=== PATIENT | male | born 1935 | race Caucasian/White ===

== ENCOUNTER 2019-02-26 08:32 | Day surgery (SDC) | payer OTHER, MEDICARE ==
[~2019-02-26] VITALS: Ht 170.2 cm; Wt 93.0 kg
--- NOTE | ~2019-02-26 | O ---
[facility] Dav Schmidt [facility] [address] OPERATIVE REPORT Name: DEBBIE SANDHU Damaso Room #: DEP [facility]..#: [id number] Admission: 02/26/19 Attend Phys: Nav Fernandes MD Discharge: 02/26/19 Date of : 37 Report #: [id number] THIS REPORT FOR: //name// CC: Dr. 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 PROCEDURE: Excision of squamous cell carcinoma of left lower lid, cheek and orbit with frozen sections, musculocutaneous flap repair of defect based on the temporalis muscle, vascularized tarsoconjunctival flap from the left upper lid to the left lower lid, full thickness skin graft from the right upper lid to the left lower lid. SURGEON: Nav Fernandes MD SENIOR JAVA SOFTWARE ENGINEER: None. ANESTHESIA: General. COMPLICATIONS: None. INDICATIONS FOR SURGERY: This pleasant 83-year-old gentleman has a biopsy proven relatively atypical squamous proliferation in his left lower lid, situated in the posterior lamella that has been shown to be squamous cell carcinoma. It is nodular and inflammatory in appearance and appears more consistent with sebaceous cell carcinoma, but the pathology shows it is indeed a squamous cell carcinoma. He presents today for excision of this tumor with frozen sections to completely extirpate the tumor if possible, and subsequently repair that defect. Informed consent was obtained to include but not limited to the potential risk for loss of vision, bleeding, infection, failure to improve the problem, and the almost certain need for additional treatment such as external beam radiation in order to limit his risk for loss of his eye. DESCRIPTION OF PROCEDURE: The patient was taken to the operating room where general anesthesia was administered. The left lower lid, the left lateral canthus, the left cheek, the left infratemporal fossa and the left medial [address] [address] OPERATIVE REPORT Name: DEBBIE SANDHU Room #: DEP [facility]..#: [id number] Admission: 02/26/19 Attend Phys: Nav Fernandes MD Discharge: 02/26/19 Date of : 37 Report #: [id number] canthus were anesthetized with Xylocaine with epinephrine mixed with Marcaine and Wydase. The patient was subsequently prepped and draped in the usual sterile fashion under general anesthesia. A fine tip skin marking pen was then utilized to outline the lesion as it presented across the cutaneous surface of the lower lid. The lesion was much, much deeper in the orbit than what was present to be seen externally. The pathologist was actually in the room and inspected the site with me as we determined our initial incisions. A Winnie scissor was then used to incise across the lid margin down into the pre-malar space taking an en bloc section. An incision across the lateral canthus that included all of the lateral canthus was taken and then the 2 points were connected in the cheek. Hemostasis was achieved with pinpoint monopolar cautery as the pathologist awaited the specimen. The dissection was then carried out in the orbit the lesion from the adjacent inferior oblique and inferior rectus muscle complex medially, and the lateral rectus and deeper orbital structures laterally and centrally. The final excision was accomplished with a Winnie scissor, but no abhilash margin was expected to be able to anticipate in this tissue because it was in fat. The specimen was then passed off to the pathologist as hemostasis was subsequently achieved with that portion of the dissection. The pathologist snap froze that tissue and she felt that the margin was closed medially and definitely positive laterally. She could not say much about it inferiorly because of the fat. An additional medial section was taken, which left just a stump of the lower eyelid. It was oriented on a drawing with the new margin up and inked. An incision was then made across the lateral portion of the lateral canthus down to the periosteum and then directed inferiorly across the periosteum into the cheek. It was then directed more nasally, thus ensuring that the entire lateral portion of the wound was excised. This was then oriented on a drawing for the waiting pathologist. The pathologist snap froze that tissue and felt that our margins were at that point adequate. A musculocutaneous flap was then developed laterally based on the temporalis muscle. The relaxing incisions made to split the muscle anteroposteriorly and allowed to be rotated in a medial-leyva fashion. Hemostasis was achieved with diligent pinpoint monopolar cautery. This tissue was rotated in such a manner so as to take superficial temporal artery with it. A deep Vicryl pass was made to periosteum in the orbit to affix the rotated tissue into the periosteum to establish the canthopexy. The skin was closed with buried 5-0 and 6-0 Vicryl sutures deep and then 6-0 plain gut sutures more superficially. The left upper lid was then everted and an incision made with a 15C blade 3.5 mm superior to the inferior border of the tarsal plate. The tarsotomy was then completed as a vascularized tarsoconjunctival flap from the left upper lid was [facility] [address] [place] [address] OPERATIVE REPORT Name: DEBBIE SANDHU [id number] Admission: 02/26/19 Attend Phys: Nav Fernandes MD Discharge: 02/26/19 Date of : 37 Report #: [id number] established. The maximum amount of tarsal plate was taken from the upper lid to allow the entire lower lid defect to be corrected. The flap was left as thin as possible to reduce the patient's risk of subsequent lid retraction. That vascularized tarsoconjunctival flap was then secured with the tarsus being attached to inferior orbital fat since the conjunctiva was completely absent in this area from the prior dissection. During that reconstruction, care was taken to ensure that the lesion was not sewn onto the globe per se and with the bare globe exposed across the entire inferior portion of the eye, it would have been easy to accomplish. The tarsal plate was secured to the musculocutaneous flap laterally and then a stub of the tarsal plate medially. This still left a defect of considerable size in the central left lower lid. A fine tip skin marking pen was then utilized to outline an upper lid crease incision on the right side. The incision was then made with a Winnie scissor. The redundant tissue in the upper lid that could be excised and still allow the patient to comfortably close his eyes was outlined. A subsequent incision was then made with a Winnie scissor and a skin muscle flap removed with high-temp cautery. That wound was then dried with monopolar cautery and closed with interrupted buried 6-0 chromic sutures to recreate the upper lid crease and then 6-0 plain gut sutures to close the skin. That full thickness skin graft was then defatted. It was subsequently secured to its bed in the left lower lid with interrupted 7-0 Vicryl sutures and 6-0 plain gut sutures. The wound was then cleaned and dressed with erythromycin ophthalmic ointment bilaterally. On the left side, a Telfa pad was placed in multiple layers, followed by 2 eye pads, which were held in place with silk tape and Mastisol. The patient was subsequently transported to the recovery area having tolerated the procedures well with no anesthetic or operative complications being noted. By: [id number] Nav Fernandes MD /nt
[~2019-02-26 08:32] MED LIST: ASPIRIN EC325 MG PO; FINASTERIDE5 MG PO; K-DUR10 MEQ PO; LIPITOR10 MG PO; LISINOPRIL-HCT1 EAC1 PO; NORVASC5 MG PO; SYNTHROID100 MC1 PO; ZYRTEC10 M5 PO
[2019-02-26 10:10] VITALS: BP 148/68
--- NOTE | 2019-02-27 15:07 | PATH ---
[facility] Dav Schmidt [place] [address] PATHOLOGY RPT PROCEDURE Name: DEBBIE SCHAEFER Damaso Room #: [facility].#: [id number] Admission: 02/26/19 Date of : 37 Discharge: 02/26/19 Report #: [id number] Path Case #: [id number] [facility] Accession Number: [id number] . 01 Material submitted: . PART A: lid - LEFT LOWER LID SQUAMOUS CELL CARCINOMA. Modifiers: left, lower PART B: lid - LEFT LOWER LID MARGINS. Modifiers: left, lower . 02 Frozen section diagnosis: . INTRAOPERATIVE CONSULTATION WITH FROZEN SECTION: (Dr. Marybeth Rowland) . FSA1, FSA2. Skin, left lower lid squamous cell carcinoma, excision: - Lateral margin positive, medial less than 1 mm away, inferior margin free. . FSB1. Skin, left lower lid (medial and lateral) margins: - Skin at true margins free of invasive carcinoma. - Suspicious at conjunctival margin due to dense inflammatory infiltrate. . . These findings are discussed with Dr. Nav Fernandes in OR 6 and a written report is placed in the patient's chart. (IUV:mml; 02/26/2019) . . . FROZEN SECTION GROSS DESCRIPTION: A. Received fresh from the OR, labeled, "Debbie Schaefer Damaso. - Left lower lid squamous cell carcinoma", is an oriented "pyramidal" shaped specimen with the superior margin measuring 1.1 cm. The overall dimensions of the specimen are 1.0 x 1.0 x 1.5 cm with the specimen additionally oriented as lateral, medial, deep and inferior margins, according to Dr. Fernandes in the OR. This specimen is inked as follows: Superior margin is inked yellow, the lateral margin is inked black. The superior half of the medial margin is inked green, and the inferior half of the medial margin is inked blue. The deep margin is inked red. At this point the inferior margin is shaved off and submitted along with a physician representative section of the tumor involving the skin, including lateral and medial margins in FSA1. This is subsequently submitted for permanent sections as A1. The remainder of the tissue (two pieces) are submitted for frozen section as FSA2, subsequently submitted for permanent sections as A2. . B. Received fresh from the OR, labeled, "Debbie Schaefer - Left lower lid margin, additional medial and lateral", are two strips of skin, each measuring approximately 1.0 cm designated as medial and 1.3 cm designated as lateral. The en face margin facing up assigned by Dr. Fernandes in the OR. At this point the lateral margin is inked black, [place] [address] PATHOLOGY RPT PROCEDURE Name: DEBBIE SCHAEFER Room #: DEP [facility] MPauly.#: [id number] Admission: 02/26/19 Date of : 37 Discharge: 02/26/19 Report #: [id number] Path Case #: [id number] inked blue, both are submitted for frozen section in the same block as FSB1, subsequently submitted for permanent sections as B1. (IUV:mml; 02/26/2019) . . Frozen section performed at [facility], [address], [place] [address]. IZV/QLM . 02 Diagnosis: A. Skin, left lower lid, excision: - MODERATELY DIFFERENTIATED SQUAMOUS CELL CARCINOMA. - PERINEURAL INVASION PRESENT. - LATERAL MARGIN POSITIVE FOR MALIGNANCY. - Medial margin less than 1 mm away. - Inferior and deep margins free of malignancy. . B. Skin, additional medial and lateral lower lid margins, excision: - True (en face) margins free of invasive carcinoma. (Please see comment) - MODERATE SQUAMOUS DYSPLASIA PRESENT WITHIN THE CONJUNCTIVAL EPITHELIUM. 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 02 Comment: Examination shows cauterized tumor present focally on the permanent section slides which represent the deeper sections (old margin) of the "left lower lid margins" (part B). The frozen section slides show abundant skeletal muscle, nerves, as well as sebaceous glands underneath skin without any invasive carcinoma. The conjunctival epithelium shows moderate dysplasia in the frozen section slides in addition to extensive acute and chronic inflammation. 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 02 Electronically signed: . Marybeth Rowland MD, Pathologist NPI- [id number] . 01 Gross description: . SEE FROZEN SECTION GROSS DESCRIPTION, PARTS A AND B /QLM . 02 Pathologist provided ICD-10: C44.1292, L98.8 . 02 CPT . 467323, 419348, 574734, 509456, [id number] [facility] [address] [place] [address] PATHOLOGY RPT PROCEDURE Name: DEBBIE SCHAEFER Room #: DEP [facility].#: [id number] Admission: 02/26/19 Date of : 37 Discharge: 02/26/19 Report #: [id number] Path Case #: [id number] Specimen Comment: A courtesy copy of this report has been sent to Specimen Comment: [phone], . Specimen Comment: Report sent to / DR BUCHANAN Performed at: [address] [facility], [place] [id number] MD Ashu Orona MD Phone: [phone] Performed at: [address] [id number] MD Marybeth Rowland MD Phone: [phone]
== END 2019-02-26 13:10 | disposition home or self-care (01) ==
LOC: TBA 08:32 → OR 08:32
DX: C44.1292 Squamous cell carcinoma of skin of left lower eyelid, including canthus (principal); I10 Essential (primary) hypertension; E03.9 Hypothyroidism, unspecified; Z98.890 Other specified postprocedural states; Z79.82 Long term (current) use of aspirin; Z79.899 Other long term (current) drug therapy; Z85.828 Personal history of other malignant neoplasm of skin
CPT/HCPCS: 50010; 50101; 50386; 50398; 51636; 56528; 56531; 62110; 62900; 64037; 70005

== ENCOUNTER → 2019-04-16 | Day surgery (SDC) | payer OTHER, MEDICARE ==
[~2019-04-16] VITALS: Ht 170.2 cm; Wt 93.0 kg
[2019-04-16 07:18] LABS: CALCIUM 8.7 mg/dL (8.5-10.1); CREATININE 0.8 mg/dL (0.7-1.3); POTASSIUM 3.7 mmol/L (3.5-5.1)
[2019-04-16 07:47] VITALS: BP 132/65
--- NOTE | 2019-04-20 06:13 | O ---
[facility] [place] [address] OPERATIVE REPORT Name: DEBBIE SANDHU Room #: [facility]#: [id number] Admission: 04/16/19 Attend Phys: Nav Fernandes MD Discharge: Date of : 36 Report #: [id number] THIS REPORT FOR: //name// CC: Hammad Gallardo Physician staff Nav Fernandes DATE OF SERVICE: 04/16/2019 PREOPERATIVE DIAGNOSIS: Squamous cell carcinoma of left lower lid and orbit. POSTOPERATIVE DIAGNOSIS: Squamous cell carcinoma of left lower lid and orbit. PROCEDURE: Second stage Stanford reconstruction, left eye. SURGEON: Nav Fernandes MD. SEGMENT BLOCK LAYER: None. ANESTHESIA: MAC. COMPLICATIONS: None. INDICATIONS FOR SURGERY: This pleasant 83-year-old gentleman underwent resection of a left lower lid and orbital squamous cell carcinoma on 02/26/2019. He presents today for planned second stage Stanford reconstruction prior to undergoing external beam radiation. Informed consent was obtained to include but not limited to the potential risk for loss of vision, bleeding, infection, failure to improve the problem, the potential need for further surgery or treatment. DESCRIPTION OF PROCEDURE: The patient was taken to the operating room where 2% Xylocaine with epinephrine mixed with equal parts of 0.75% Marcaine with Wydase was administered transcutaneously and transconjunctivally to the left lower lid, the left lateral canthus and the lateral left upper lid. The patient was subsequently prepped and draped in the usual sterile fashion. A groove director was then placed behind the pedicle from the upper lid into the lower lid. The initial incision was then made with a high-temp cautery across the new left lower lid margin and out to the lateral canthus. The left upper lid was then everted over a cotton-tipped applicator. The donor site was then cleaned with a Winnie scissor and drawn down to a flat smooth appearance. The conjunctiva inferiorly was then rolled over the eyelid margin and affixed in a standard fashion. The wounds were then cleaned and dressed with erythromycin ophthalmic [address] [address] OPERATIVE REPORT Name: DEBBIE SANDHU Room #: REG [facility]..#: [id number] Admission: 04/16/19 Attend Phys: Nav Fernandes MD Discharge: Date of : 37 Report #: [id number] ointment. The patient subsequently transported to the recovery area, where cold compresses were applied. No operative or surgical complications were noted. <ELECTRONICALLY SIGNED> By: Nav Fernandes MD 04/20/19 0613 [id number] Nav Fernandes MD /nt
== END | disposition home or self-care (01) ==
LOC: OR 06:35
PROVIDERS: Ophthalmology
DX: C44.1292 Squamous cell carcinoma of skin of left lower eyelid, including canthus (principal); I10 Essential (primary) hypertension; E78.5 Hyperlipidemia, unspecified; E03.9 Hypothyroidism, unspecified; N40.0 Benign prostatic hyperplasia without lower urinary tract symptoms; Z98.890 Other specified postprocedural states; Z79.82 Long term (current) use of aspirin; Z79.899 Other long term (current) drug therapy
CPT/HCPCS: 50010; 50101; 50386; 50398; 51636; 62110; 62850; 70005